=== PATIENT | male | born 1945 | race Caucasian/White ===

== ENCOUNTER 2021-12-01 06:57 | Day surgery (SDC) | payer MEDICARE ==
[2021-12-01] VITALS (7 sets, daily range): BP systolic 154–176; BP diastolic 59–71; PULSE 43–84; TEMP 97–97.3
[~2021-12-01] VITALS: Ht 190.5 cm; Wt 102.8 kg
--- NOTE | 2021-12-01 07:01 | NUR ---
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
[2021-12-01] MEDS ORDERED: COREG 6.256.25 MG/TA PO (07:23)
[2021-12-01] MEDS ORDERED: FLOMAX 0.40.4 MG/CAP PO (07:23)
[2021-12-01] MEDS ORDERED: PRINIVIL20 MG PO (07:23)
[2021-12-01] MEDS ORDERED: ASPIRIN E.C. 8181 MG PO (07:24)
--- NOTE | 2021-12-01 11:14 | NUR ---
1030 - PT arrives via cart, drowsy but oriented. PT denies pain and nausea. Monitors applied and vitals obtained; PT oriented to room and call dias, within reach. Non-slip socks remain on. Side rails x2. PT provided ice water and a warm muffin per request. PT states ride will be here around 1300. 1045 - Vitals obtained; HR is sinus bradycardia; however, it is within pre-op range. PT continues to deny nausea. No vomiting. PT is watching TV w/ call bel within reach.
--- NOTE | 2021-12-01 11:23 | NUR ---
1100 - PT has finished his snack and continues to drink water; denies nausea. No vomiting. Vitals obtained. PT continues to watch TV w/ call dias 1115 - Vitals obtained. PT states he is comfortable. Call dias reamins within reach. Side rails remain.
--- NOTE | 2021-12-01 11:52 | NUR ---
1145 - Vitals obtained. PT continues to watch TV. Call dias remains within reach.
--- NOTE | 2021-12-01 12:14 | NUR ---
1200 - IV discontinued. Catheter tip intact. Pressure bandage applied, no redness or swelling noted. PT was assisted to bedside, where 700 ml of blood red urine was removed from leg bag; no clots noted. PT educated per protocol about [place] and leg bag(s); supplies sent: 40 alocohol prep pads, two leg bags, one landon bag, one pack of soft wipes, four packs of sterile 2x2, clean urinal. Vitals obtained. PT refused RN assistance changing into personal clothes, call dias remains within reach if needed. Awaiting ride home around 1300.
--- NOTE | 2021-12-01 13:44 | NUR ---
1335 - PT dismissed from [facility] via wheelchair to PT entrence by Carmen RAMIREZ. PT has DC packet, supplies and personal belongings. PT was transferred into the care of his friend Soto, who is driving private car.
== END 2021-12-01 13:35 | disposition home or self-care (01) ==
LOC: SDCO 06:57
DX: N99.113 Postprocedural anterior bulbous urethral stricture, male (principal); R33.9 Retention of urine, unspecified
CPT/HCPCS: C1769; C1894; J0690; J1100; J2405; J2704; J3010; J7120